=== PATIENT | male | born 1985 | race Two or more races ===

== ENCOUNTER 2021-05-12 08:33 | Emergency (ER) | payer OTHER ==
[~2021-05-12] VITALS: Ht 177.8 cm; Wt 111.1 kg
[2021-05-12 09:33] VITALS: BP 138/90
[2021-05-12] MEDS ORDERED: KETOROLAC TROMETH 60MG/2ML VIAL IM ONE (10:15)
[2021-05-12] MEDS ORDERED: IBUP800T27 PO (10:28)
== END 2021-05-12 10:32 | disposition home or self-care (01) ==
LOC: ER 08:33
DX: K40.90 Unilateral inguinal hernia, without obstruction or gangrene, not specified as recurrent (principal); F17.290 Nicotine dependence, other tobacco product, uncomplicated
CPT/HCPCS: 74176; 96372; 99284; J1885